=== PATIENT | male | born 1960 | race Caucasian/White ===

== ENCOUNTER 2019-06-14 09:31 | Emergency (ER) | payer SELFPAY ==
[2019-06-14] MEDS ORDERED: Lidocaine 1% 10 ML MDV INJECT ONE (09:53)
--- NOTE | 2019-06-14 10:05 | EDM.PDOC ---
ED HPI GENERAL MEDICAL PROBLEM - General Chief Complaint: Laceration Stated Complaint: NOSE LAC Time Seen by Provider: 06/14/19 09:42 Source of Information: Reports: Patient History Limitations: Reports: No Limitations - History of Present Illness INITIAL COMMENTS - FREE TEXT/NARRATIVE: The patient presents with a nose injury. He was working with some portable panels and one gave way and hit him in the nose. He had no LOC. He has no neck pain. He does have a 3cm laceration to the left side of the nose. He says his tetanus is up to date. He has no other injuries. Onset: Sudden Duration: Minutes: Location: Reports: Face Quality: Reports: Sharp Severity: Mild Improves with: Reports: None Worsens with: Reports: None Associated Symptoms: Reports: No Other Symptoms Nose Pain Score (Numeric/FACES): 2 - Related Data Allergies Allergy/AdvReac Type Severity Reaction Status Date / Time morphine Allergy Difficulty Verified 06/14/19 09:50 Breathing Home Meds: Home Meds . 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 Social & Family History - Family History Family Medical History: Noncontributory - Tobacco Use Smoking Status *Q: Never Smoker Second Hand Smoke Exposure: No - Caffeine Use Caffeine Use: Reports: Coffee, Soda - Recreational Drug Use Recreational Drug Use: No ED ROS GENERAL - Review of Systems Review Of Systems: See Below Constitutional: Reports: No Symptoms HEENT: Reports: Other (laceration to the left side of his nose) Respiratory: Reports: No Symptoms Cardiovascular: Reports: No Symptoms Endocrine: Reports: No Symptoms GI/Abdominal: Reports: No Symptoms : Reports: No Symptoms Musculoskeletal: Reports: No Symptoms Skin: Reports: No Symptoms Neurological: Reports: No Symptoms ED EXAM, SKIN/RASH Exam: See Below Exam Limited By: No Limitations General Appearance: Alert, No Apparent Distress Ears: Normal External Exam Nose: Other (3cm laceration to the left side of his nose) Head: Normocephalic Neck: Normal Inspection Respiratory/Chest: No Respiratory Distress ED SKIN PROCEDURES - Laceration/Wound Repair Left Nose Appearance: Subcutaneous, Linear, Clean Anesthetic Type: Local Local Anesthesia - Lidocaine (Xylocaine): 1% Plain Local Anesthetic Volume: 3cc Skin Prep: Saline Exploration/Debridement/Repair: Wound Explored, In a Bloodless Field, Explored to Base Closed with: Sutures Lac/Wound length In cm: 3 Suture Size: 5-0 # of Sutures: 5 Suture Type: Other (Vicryl) Tetanus Status Addressed: Yes Complications: No Course - Vital Signs Last Recorded V/S: Last Vital Signs Temp 98.4 F 06/14/19 09:44 Pulse 101 H 06/14/19 09:44 Resp 18 06/14/19 09:44 BP 164/117 H 06/14/19 09:44 Pulse Ox 96 06/14/19 09:44 - Orders/Labs/Meds Orders: Active Orders 24 hr Category Date Time Status Nasal Bone Min 3V [CR] Stat Exams 06/14/19 09:49 Taken Meds: Medications Discontinued Medications Generic Name Dose Route Start Last Admin Trade Name Freq PRN Reason Stop Dose Admin Lidocaine HCl 10 ml 06/14/19 09:53 06/14/19 10:05 Xylocaine 1% INJECT 06/14/19 09:54 10 ml ONETIME ONE Administration - Re-Assessments/Exams Free Text/Narrative Re-Assessment/Exam: 06/14/19 10:04 I ordered a nasal bone x-ray and there appears to be no fracture. I will suture his nose. Departure - Departure Time of Disposition: 10:40 Disposition: Home, Self-Care 01 Condition: Good Clinical Impression: Laceration of nose Qualifiers: Encounter type: initial encounter Qualified Code(s): S01.21XA - Laceration without foreign body of nose, initial encounter - Discharge Information *PRESCRIPTION DRUG MONITORING PROGRAM REVIEWED*: No *COPY OF PRESCRIPTION DRUG MONITORING REPORT IN PATIENT DEBBIE: No Referrals: PCP,None [Primary Care Provider] - Bayron Short MD [Ordering Only Provider] - 1 Week Forms: ED Department Discharge Additional Instructions: Clean your wound with warm soapy water 2 times per day and apply antibiotic ointment after. The sutures are absorbable and they will fall out within 7 to 10 days. Look for any sign of infection such as redness, swelling, pain, or drainage. If you see any of these signs please return. You may need oral antibiotics. If you do not like the look of the repair follow up with an ear nose and throat surgeon Dr Short within a couple weeks. - My Orders Last 24 Hours: My Active Orders 06/14/19 09:49 Nasal Bone Min 3V [CR] Stat - Assessment/Plan Last 24 Hours: My Active Orders 06/14/19 09:49 Nasal Bone Min 3V [CR] Stat
--- NOTE | 2019-06-16 09:42 | CR ---
Nasal bone: Three views of the nasal bone were obtained. Comparison: No previous study. Difficult to exclude a very distal nasal bone fracture. No additional abnormality is appreciated. Impression: 1. Difficult to exclude a very distal nasal bone fracture. This could also represent calcification within the nasal cartilage. 2. No additional abnormality is seen. Diagnostic code #3
== END 2019-06-14 10:45 | disposition home or self-care (01) ==
LOC: JD.ED 09:31
DX: S01.21XA Laceration without foreign body of nose, initial encounter (principal); I10 Essential (primary) hypertension; I25.2 Old myocardial infarction; Z88.5 Allergy status to narcotic agent; W22.8XXA Striking against or struck by other objects, initial encounter
CPT/HCPCS: 12013; 70160; 99283; J2001; 99282